=== PATIENT | female | born 1965 | race Caucasian/White ===

== ENCOUNTER 2018-01-05 02:05 | Emergency (ER) | payer BC | END 2018-01-05 04:33 | disposition left against medical advice (07) | LOC: ERS 02:05 | DX: Z53.21 Procedure and treatment not carried out due to patient leaving prior to being seen by health care provider (principal) ==

== ENCOUNTER 2018-01-09 14:26 | Outpatient (CLI) | payer BC | END 2018-01-09 14:27 | disposition home or self-care (01) | LOC: BICMAMMO 14:26 | PROVIDERS: ATTEND Family Medicine | DX: Z12.31 Encounter for screening mammogram for malignant neoplasm of breast (principal) | CPT/HCPCS: 77063; 77067 ==

== ENCOUNTER 2022-03-31 07:28 | Outpatient (CLI) | payer BC | END 2022-03-31 07:29 | disposition home or self-care (01) | LOC: ULT 07:28 | PROVIDERS: ATTEND Family Medicine | DX: R74.8 Abnormal levels of other serum enzymes (principal); K76.0 Fatty (change of) liver, not elsewhere classified | CPT/HCPCS: 76700 ==